=== PATIENT | female | born 1955 | race Caucasian/White ===

== ENCOUNTER 2025-01-26 20:25 | Emergency (ER) | payer MEDICARE, SELFPAY ==
--- NOTE | ~2025-01-26 | CT_ITS ---
CLINICAL HISTORY: visual changes R eye CT Head without contrast. CT angiography head and neck with contrast. MIP postprocessing. Comparison: None Findings: HEAD CT: No intra-axial mass, midline shift, hydrocephalus, or acute hemorrhage. No significant atrophy-like change or white matter disease. There is no sinus or mastoid fluid. The orbits are within normal limits. There is no acute fracture. HEAD AND NECK CTA: Aortic arch and cervical great vessels are patent. Intracranial arteries are patent. No aneurysm, dissection, or occlusion. No abnormal intracranial enhancement. The visualized thyroid gland is unremarkable. No cervical mass or fluid collection. Lung apices clear. No acute fracture. IMPRESSION: 1. Unremarkable head CT. 2. Patent head and neck CTA. This document has been electronically signed by: Anibal Peters MD on 01/27/2025 07:51:27
[2025-01-26 20:44] VITALS: BP 150/58; PULSE 71; RESP 18; TEMP 36.8; O2SAT 98; BMI 37.9
--- NOTE | 2025-01-26 20:44 | ED.GENADULT ---
HPI - General Adult General Chief complaint: Eye Problems Stated complaint: flashes of light and floaters in right eye DM Time Seen by Provider: 01/27/25 03:11 Source: patient Mode of arrival: ambulatory Limitations: no limitations History of Present Illness ED Provider: Dr. Susan Barnett HPI narrative: Patient comes to the emergency room complaining of right eye floaters and flashes. According to the patient, 3 years ago she started having floaters on the left eye. Patient states that she was evaluated and told that this were normal aging changes. Patient states that 2 days ago she started having sudden onset of black floaters, patient states they are thousands of floaters in her right visual field. Patient states that when she moves her right eye towards the lateral aspect of the eye and looks upwards, she can see flashes of light. Patient denies any pain. Patient states that her visual acuity seems to be at baseline. The patient's knowledge, she has never had any issues with glaucoma, retinal detachments TIAs/CVAs Related Data Allergies Allergy/AdvReac Type Severity Reaction Status Date / Time codeine AdvReac Unknown Verified 01/26/25 20:45 Review of Systems Review of Systems: Constitutional : No Weight loss, No Fever, No Chills, No Night Sweats, No Fatigue, No Malaise ENT/Mouth : No Hearing loss, No Ear Pain, No Nasal Congestion, No Sinus Pain, No Hoarseness, No sore throat, No Rhinorrhea, No Swallowing Difficulty Eyes: No Eye Pain, No Swelling, No Redness, No Foreign Body, No Discharge, complaining of seeing floaters and flashing lights out of the right eye Cardiovascular : No Chest Pain, No SOB, No Dyspnea on Exertion, No Orthopnea, No Edema, No Palpitations Respiratory : No Cough, No Sputum, No Wheezing, No Smoke Exposure, No Dyspnea Gastrointestinal : No Nausea, No Vomiting, No Diarrhea, No Constipation, No abdominal Pain, No Hematochezia, No Melena Genitourinary : no irregular bleeding, No Dysuria, No Urinary Frequency, No Hematuria, No Urinary Incontinence, No Urgency, No Flank Pain, No Urinary Flow Changes, No Hesitancy Musculoskeletal : No joint pain, No Myalgias, No Joint Swelling Skin : No Skin Lesions, No rash Neuro : No Weakness, No Numbness, No Paresthesias, No Loss of Consciousness, No Dizziness, No Headache Psych : No Anxiety/Panic, No Depression, No SI/HI/AH/VH, No Social Issues, Heme/Lymph: No Bruising, No Bleeding,No Lymphadenopathy Endocrine : No Polyuria, No Polydipsia, No Temperature Intolerance [facility] Past Medical History Medical History (Updated 01/27/25 @ 07:55 by Susan Barnett MD) Hypertension Type 2 diabetes mellitus Social History Social History Alcohol intake: current Alcohol intake frequency: 3 or more drinks per day Alcohol type: beer, wine and hard liquor Smoked in Last 30 Days: No Use of substances other than those prescribed or required for medical reasons: Yes Substance Use Type: Marijuana Substance Use Frequency: Daily Last Used Substance: Hours (ago) Advance Directives: No Advance Directives Information Provided: Yes Physical Exam ED Vital Signs: Vital Signs - 24 hr 01/26/25 20:44 01/27/25 02:20 01/27/25 03:55 Temperature 98.2 F 98.2 F Pulse Rate 71 72 58 Respiratory Rate 18 20 18 Blood Pressure 150/58 H 186/58 H 185/68 H Pulse Oximetry 98 97 97 Oxygen Delivery Method Room Air Room Air Room Air 01/27/25 05:47 Temperature 97.1 F Pulse Rate 61 Respiratory Rate 16 Blood Pressure 182/57 H Pulse Oximetry 98 Oxygen Delivery Method Room Air BMI result Body Mass Index 37.9 Const Other: Appearance: Alert. Oriented X3. No acute distress. Eyes: Pupils equal, round and reactive to light. - right eye: pressure 17.2 mmHg, 20/50, visual hanley intact - left eye: pressure is 17.5 mmHg, 20/50, visual hanley intact - on bedside ultrasound, bilaterally I did not see any obvious retinal detachment or vitreous hemorrhages ENT: Pharynx normal. Neck: Normal inspection. Neck supple. No lymph nodes noted. No crepitus CVS: Normal heart rate and rhythm. Pulses normal. Normal S1 and S2 Respiratory: No respiratory distress. Breath sounds normal. No Wheezing. No rales Abdomen: Soft and nontender. No rigidity. No distention. Skin: Skin warm and dry. Normal skin color. Normal skin turgor. Extremities: No lower extremity edema. No Lacerations. No Rash Neuro: Oriented X 3. No motor deficit. No sensory deficit. Moving all extremities. No slurred speech. CN 2 through 12 grossly intact Psych: calm, cooperative, normal affect Course Course Course Narrative: This is an RME: Additional HPI, ROS, PE not included below will be deferred to primary provider. RME assessment and note performed by: Fabby Milian PA-C This is a [id number]-female, with a hx diabetes type 2 on insulin, HLD, HTN, depression, who presents to the ER with complaints of right eye vision changes. Pt reports that two days ago she has had right eye vision changes > reporting that when she looked to the right she would get white streaks in her field of vision and had floaters in her right eye. Continued to have floaters in right eye, but white streaks resolved. Reports 1 hour [employer] she developed white streaks in her right eye again. She states that she chronically gets floaters in her left eye. Recently started on HCTZ 1 week ago. Mild headache. Medications Administered Discontinued Medications Generic Name Dose Route Start Last Admin Trade Name Freq PRN Reason Stop Dose Admin Iohexol 70 ml 01/27/25 05:01 01/27/25 05:02 Iohexol 350 Mg/Ml 100 Ml Infus..Btl IV 01/27/25 05:02 70 ml ONCE ONE Administration Medical Decision Making Medical Decision Making [facility] Narrative: ultrasound of the eyes do not show any acute abnormality. We will proceed with a CT scan. Also lab work. CT scan does not show any acute abnormality. I discussed the patient with Dr. Santiago from Ophthalmology. Patient may go to his office for an appointment on 01/30/2025. however, if patient has any visual changes, patient needs to go immediately to [facility] or [facility] I discussed the above-mentioned with the patient, patient agrees with plan Differential Diagnosis Differential Diagnoses: The differential diagnosis associated with the presentation includes ( retinal detachment, vitreous hemorrhage, retinoschisis) Admission/Observation Consideration of admission/observation: Escalation of care including admission/observation considered ( given patient's complaints, transfer was considered) Lab Data [facility] Lab Attestation statement: I reviewed the patient's lab results. 01/27/25 04:02 01/27/25 04:02 Labs: Lab Results 01/27/25 Range/Units 04:02 WBC 5.8 (4.8-10.8) X10*3/uL RBC 4.06 L (4.20-5.50) X10*6/uL Hgb 12.4 (12.0-16.0) g/dl Hct 36.2 L (37.0-47.0) % MCV 89.2 (80.0-98.0) fL MCH 30.5 (27.0-33.0) pg MCHC 34.3 (31.0-35.0) g/dl RDW 12.9 (11.0-16.0) % Plt Count 145 L (160-400) X10*3/uL MPV 9.8 (9.4-12.3) fL Immature Gran % (Auto) 0.2 (0.0-0.4) % Neut % (Auto) 60.5 (45-73) % Lymph % (Auto) 26.8 (20-40) % Glynn % (Auto) 7.6 (2-11) % Eos % (Auto) 4.0 (0-4) % Baso % (Auto) 0.9 (0-2) % Lymph # (Auto) 1.6 (1.2-4.9) X10*3/uL Glynn # (Auto) 0.4 (0.1-1.2) X10*3/uL Eos # (Auto) 0.2 (0.0-0.4) X10*3/uL Baso # (Auto) 0.1 (0.0-0.2) X10*3/uL Abs Immat Gran (auto) 0.01 (0.00-0.03) X10*3/uL Absolute Neuts (auto) 3.5 (2.0-8.3) x10*3/uL Absolute Nucleated RBC 0.000 (0.0-0.012) X10*3/uL Nucleated RBC % (auto) 0.0 (0.0-0.2) /100WBC Sodium 141 (135-145) mmol/L Potassium 3.9 (3.3-5.1) mmol/L Chloride 108 (96-108) mmol/L Carbon Dioxide 25 (22-29) mmol/L Anion Gap 12 (12-20) BUN 38 H (9-16) mg/dL Creatinine 1.44 H (0.5-1.4) mg/dL Estim Creat Clear Calc 45.5 Estimated GFR 36 Random Glucose 112 (60-115) mg/dL Calcium 9.5 (8.4-10.2) mg/dL Total Bilirubin 0.9 (0.0-1.0) mg/dL Direct Bilirubin 0.3 (0.0-0.5) mg/dL AST 30 (5-31) U/L ALT 22 (0-31) U/L Alkaline Phosphatase 83 (39-117) U/L Total Protein 7.1 (6.5-8.0) g/dL Albumin 4.6 (3.5-5.0) g/dL Independent Interpretation I performed an independent interpretation of an: CT Scan Radiology Impression Discussion of test interpretation with radiology: I have reviewed the radiologist's reading. Radiologist Impression: HEAD CT: No intra-axial mass, midline shift, hydrocephalus, or acute hemorrhage. No significant atrophy-like change or white matter disease. There is no sinus or mastoid fluid. The orbits are within normal limits. There is no acute fracture. HEAD AND NECK CTA: Aortic arch and cervical great vessels are patent. Intracranial arteries are patent. No aneurysm, dissection, or occlusion. No abnormal intracranial enhancement. The visualized thyroid gland is unremarkable. No cervical mass or fluid collection. Lung apices clear. No acute fracture. Critical Care Time Critical Care Time Critical Care Time: Yes Total Critical Care Time: 75 Attestation: I have personally provided critical care time. Time includes review of lab data, radiology results, discussion with consultants, and monitoring for potential decompensation. Intervention performed as documented. Discharge Plan Discharge Clinical Impression: Floaters in visual field Patient Disposition: Home, Self-Care Instructions: Eye (Visual) Floaters (ED) Additional Instructions: please go to Ophthalmology, Dr. Santiago's office on WednesdayJanuary 30. if you have any visual changes, please go immediately to [facility] or [facility] which is in [place]. Please follow-up with your primary care physician tomorrow. If you have any worsening or new symptoms, please return to the emergency room or call 911 Referrals: Isac Santiago [Physician] - 01/30/25 Print Language: Paraguayan
--- NOTE | 2025-01-27 01:33 | PC.NURSE ---
Pt to charge stating to inquire as to what she was waiting on as it has been an hour that she has been in the room without a provider coming in to assess her. This RN apologized for the inconvenience and provided her with the plan per PIT provider's earlier encounter and communications with this RN. Pt seemed content with this information and thanked this RN for the info/update.
--- OUTSIDE RECORDS SUMMARY | 2025-01-27 02:01 | XMS_ITS | Clinical Summary ---
Author Organization [facility] Address [address] [place] [address] Phone Care Team Providers Care [employer] D[employer] Name Role Phone Roselia Cano MD Primary Care Provider [phone] Allergies Active Allergy Reactions Criticality Noted Date Comments Codeine Nausea And Vomiting 11/30/2024 Medications polyethylene glycol (Golytely) 236-22.74-6.74 -5.86 gram solution Take 4L by mouth once for one dose. May substitue any PEG. Starting at 6PM the night before your procedure drink 1 8oz glasses at your own pace until you complete half of the gallon. Finish 2nd half of the gallon 5 hours before your procedure. 4000 mL 5 Active bisacodyL (DULCOLAX) 5 mg EC tablet Take 2 tablets by mouth right before beginning bowel prep. See instructions provided by the office 2 tablet 5 Active aspirin 81 mg capsule Take 81 mg by mouth. 5 Active vitamin B complex (B Complex 100) 307-4-738-2-2 mg/mL injection Take 1 tablet by mouth. 5 Active cholecalciferol (VITAMIN D-3) 125 mcg (5,000 unit) capsule Take by mouth. A ctive Jardiance 10 mg tablet Take 1 tablet (10 mg total) by mouth 1 (one) time each day in the morning. Active insulin glargine,hum.re c.anlog (Basaglar KwikPen U-100 Insulin) 100 unit/mL (3 mL) injection pen INJECT 58 UNITS UNDER THE SKIN DAILY 5 Active lisinopriL (PRINIVIL,ZESTR IL) 20 mg tablet Take 1 tablet (20 mg total) by mouth 1 (one) time each day. Active sertraline (ZOLOFT) 100 mg tablet Take 1 tablet (100 mg total) by mouth 1 (one) time each day. 1 Active simvastatin (ZOCOR) 40 mg tablet See Instructions, TAKE ONE TABLET BY MOUTH EVERY DAY, # 30 tablet, Refills 5, Instructions Replace Required Details, Route to Pharmacy Electronically, [facility], 167.64, cm, 04/08/21 14:21:00 EDT, Height 1 Active Mounjaro 2.5 mg/0.5 mL injection INJECT 2.5MG UNDER THE SKIN EVERY WEEK. ROTATE INJECTION SITES Active omeprazole (PriLOSEC) [address] capsule Take 1 capsule (40 mg total) by mouth 1 (one) time each day. Do not crush or chew. 90 each 5 04/07/20 25 Active Encounters Date Type Department Care Team Description 01/04/2025 Telephone Gastroenterology - [place] [facility] [address] [facility] [address] [place] [address] Simi Jean NP Results (Endoscopy 11/30/2024) 11/30/2024 8:08 AM EDT Anesthesia Event [facility] Endoscopy [address] [place] [phone] Arden Saucedo MD 11/30/2024 7:01 AM EDT - 11/30/2024 11:59 PM EDT Hospital Encounter [facility] Endoscopy [address] [place] [address] Nicholas Salazar MD Swanson, Mona, CRNA Spencer, Mark A, MD Dysphagia; Family hx colonic polyps Discharge Disposition: Home or Self Care from Last 3 Months Surgical History Surgery Date Site/Laterality Comments TONSILLECTOMY CHOLECYSTECTOMY BREAST LUMPECTOMY Right VENTRAL HERNIA REPAIR Medical History Medical History Date Comments Diabetes mellitus (CMS/HCC V24, CMS/HCC V28) Hypertension Hyperlipidemia Anxiety Depression CKD (chronic kidney disease), stage III ([facility] V24, [facility] V28) Sleep apnea Obesity Social History Tobacco Use Types Packs/Day Years Used Date Smoking Tobacco: Never Smokeless Tobacco: Never Tobacco Cessation:Counseling Given: Not Answered Alcohol Use Standard Drinks/Week Comments Yes 0 (1 standard drink = 0.6 oz pur e alcohol) Interpersonal Safety Answer Date Record ed Physical Abuse 11/30/2024 Verbal Abuse 11/30/2024 Comments No Sex and Gender Information Value Date Recorded Sex Assigned at Not on file Legal Sex Female 4:11 AM EST Gender Identity Not on file Sexual Orientation Not on file Obstetrics History Last Filed Vital Signs Vital Sign Reading Time Taken Comments Blood Pressure 122/51 11/30/2024 8:54 AM EDT Pulse 53 11/30/2024 8:54 AM EDT Temperature 36.4 ??C (97.6 ??F) 11/30/2024 8:34 AM ED T Respiratory Rate 12 11/30/2024 8:54 AM EDT Oxygen Saturation 97% 11/30/2024 8:54 AM EDT Inhaled Oxygen Concentration - - Weight 107 kg (235 lb) 11/30/2024 7:57 AM EDT Height 167.6 cm (5' 6 ) 11/30/2024 7:57 AM EDT Body Mass Index 37.93 11/30/2024 7:57 AM EDT Plan of Treatment Upcoming Encounters Date Type Department Care Team (Late st Contact Info) Description 03/12/2025 8:40 AM EDT Office Visit Gastroenterology - [place] [facility] [address] [facility] [address] [place] [phone] Simi Jean NP 175 [facility] [address] [place] [address] Health Maintenance Due Date Last Done Comments Breast Cancer Screening 1955 Diabetes: Annual Foot Exam 1965 Diabetes: Annual Retina Eye Exam 1965 Zoster Vaccines (2 of 2) 08/05/2022 06/10/2022 Cholesterol Screening (Lipid Panel) 03/14/2024 Depression Screening 03/14/2024 Hepatitis C Screening 03/14/2024 Medicare Annual Wellness Visit 03/14/2024 Osteoporosis Screening (Bone Density Screening) 03/14/2024 Social Influencers of Health Screening 03/14/2024 COVID-19 Vaccine (6 - Mixed Product risk ) 11/21/2024 05/23/2024, 05/06/2023, 06/10/2022, Additional history exists Diabetes: Blood Sugar Control Test (HGBA1C) 01/07/2025 07/10/2024, 07/10/2024 Diabetes: Annual Urine Albumin-Creatinine Ratio (uACR) 07/10/2025 07/10/2024 Diabetes: Annual GFR (Glomerular Filtration Rate) 07/10/2025 07/10/2024 Hypertension/CHF/CAD Annual BMP Blood Test 07/10/2025 07/10/2024 Falls Risk Assessment 11/30/2025 11/30/2024 Colorectal Cancer Screening: Colonoscopy 11/30/2029 11/30/2024 DTaP,Tdap,and Td Vaccines (2 - Td or Tdap) 01/29/2032 01/28/2022 Influenza Vaccine Completed 05/23/2024, , 07/08/2021, Additional history exists RSV Immunization Adult Patients Completed 05/23/2024 Pneumococcal Vaccine: 50+ Years Completed 10/17/2024, 01/28/2022 HIB Vaccines Aged Out No longer eligi ble based on patient's age to complete this topic HPV Vaccines Aged Out No longer eligi ble based on patient's age to complete this topic Hepatitis A Vaccines Aged Out No long er eligible based on patient's age to complete this topic Hepatitis B Vaccines Aged Out No long er eligible based on patient's age to complete this topic IPV Vaccines Aged Out No longer eligi ble based on patient's age to complete this topic MMR Vaccines Aged Out No longer eligi ble based on patient's age to complete this topic Meningococcal ACWY Vaccine Aged Out N o longer eligible based on patient's age to complete this topic Meningococcal B Vaccine Aged Out No l onger eligible based on patient's age to complete this topic RSV Immunization Patients Under 20 months Aged Out No longer eligible based on patient's age to complete this topic Varicella Vaccines Aged Out No longer eligible based on patient's age to complete this topic Procedures Procedure Name Priority Date/Time Associated Diagnosis Comments COLONOSCOPY Routine 11/30/2024 8:33 AM EDT Dysphagia Family hx colonic polyps EGD Routine 11/30/2024 8:33 AM EDT Dysphagia Family hx colonic polyps TISSUE EXAM Routine 11/30/2024 8:16 AM EDT Dysphagia Family hx colonic polyps POCT GLUCOSE BLOOD Routine 11/30/2024 7: 47 AM EDT from Last 3 Months Results * COLONOSCOPY Anesthesia - MAC; [facility] ENDOSCOPY (11/30/2024 8:33 AM EDT) Anatomical Region Laterality Modality Other 11/30/2024 8:21 AM EDT Impressions 11/30/2024 8:35 AM EDT - Diverticulosis in the sigmoid colon. ? - Internal hemorrhoids. ? - No specimens collected. Recommendation: ?- Use fiber, for example Citrucel, Fibercon, Konsyl or ? Metamucil. ? - Repeat colonoscopy in 5 years for surveillance. Narrative 11/30/2024 8:[address] [facility] GI Patient Name: Claudia Anguiano Procedure Date: 11/30/2024 8:21 AM Date of : 1955 Age: 69 Gender: Female Note Status: Finalized Attending MD: Nicholas Salazar MD, Procedure Date No Time: 11/30/2024 Procedure: ? Colonoscopy Indications: ? High risk colon cancer surveillance: Personal history ? of colonic polyps Providers: ? Nicholas Salazar MD Referring MD: ?Nicholas Salazar MD Medicines: ? Propofol per Anesthesia Complications: ? No immediate complications. Estimated Blood Loss: ? Estimated blood loss: none. Procedure: ? Pre-Anesthesia Assessment: ? - ASA Grade Assessment: III - A patient with severe ? systemic disease. ? After I obtained informed consent, the scope was ? passed under direct vision. Throughout the procedure, ? the patient's blood pressure, pulse, and oxygen ? saturations were monitored continuously.The ? Colonoscope was introduced through the anus and ? advanced to the cecum, identified by appendiceal ? orifice and ileocecal valve. The colonoscopy was ? performed without difficulty. The patient tolerated ? the procedure well. The quality of the bowel ? preparation was adequate. Findings: ?The perianal and digital rectal examinations were ? normal. ? A few diverticula were found in the sigmoid colon. ? Internal hemorrhoids were found during endoscopy. The ? hemorrhoids were Grade II (internal hemorrhoids that ? prolapse but reduce spontaneously). Procedure Code(s): ? --- Professional --- ? G0105, Colorectal cancer screening; colonoscopy on ? individual at high risk Diagnosis Code(s): ? --- Professional --- ? Z86.010, Personal history of colonic polyps ? K64.1, Second degree hemorrhoids ? K57.30, Diverticulosis of large intestine without ? perforation or abscess without bleeding CPT copyright 2020 [employer]. All rights reserved. The codes documented in this report are preliminary and upon bevel polisher review may be revised to meet current compliance requirements. Nicholas Salazar MD 11/30/2024 8:35:09 AM This report has been signed electronically.Nicholas Salazar MD Number of Addenda: 0 Note Initiated On: 11/30/2024 8:21 AM Scope In: Scope Out: ? Endoscopy Department at [facility] - [address] [place] [address], ? [place] [address] Procedure Note Nicholas Salazar MD - 11/30/[address] [facility] GI Patient Name: Claudia Anguiano Procedure Date: 11/30/2024 8:21 AM Date of : 1955 Age: 69 Gender: Female Note Status: Finalized Attending MD: Nicholas Salazar MD, Procedure Date No Time: 11/30/2024 Procedure: Colonoscopy Indications: High risk colon cancer surveillance: Personalhistory of colonic polyps Providers: Nicholas Salazar MD Referring MD: Nicholas Salazar MD Medicines: Propofol per Anesthesia Complications: No immediate complications. Estimated Blood Loss: Estimated blood loss: none. Procedure: Pre-Anesthesia Assessment: - ASA Grade Assessment: III - A patient with severe systemic disease. After I obtained informed consent, the scope was passed under direct vision. Throughout theprocedure, the patient's blood pressure, pulse, and oxygen saturations were monitored continuously.The Colonoscope was introduced through the anus and advanced to the cecum, identified by appendiceal orifice and ileocecal valve. The colonoscopy was performed without difficulty. The patient tolerated the procedure well. The quality of the bowel preparation was adequate. Findings: The perianal and digital rectal examinations were normal. A few diverticula were found in the sigmoidcolon. Internal hemorrhoids were found during endoscopy.The hemorrhoids were Grade II (internal hemorrhoidsthat prolapse but reduce spontaneously). Procedure Code(s): --- Professional --- G0105, Colorectal cancer screening; colonoscopy on individual at high risk Diagnosis Code(s): --- Professional --- Z86.010, Personal history of colonic polyps K64.1, Second degree hemorrhoids K57.30, Diverticulosis of large intestine without perforation or abscess without bleeding CPT copyright 2020 [employer]. All rights reserved. The codes documented in this report are preliminary and upon bevel polisher reviewmay be revised to meet current compliance requirements. Nicholas Saalzar MD 11/30/2024 8:35:09 AM This report has been signed electronically.Nicholas Salazar MD Number of Addenda: 0 Note Initiated On: 11/30/2024 8:21 AM Scope In: Scope Out: Endoscopy Department at [facility] - [address] [place] [phone] IMPRESSION: - Diverticulosis in the sigmoid colon. - Internal hemorrhoids. - No specimens collected. Recommendation: - Use fiber, for example Citrucel, Fibercon, Konsylor Metamucil. - Repeat colonoscopy in 5 years for surveillance. us Nicholas Salazar MD GI~PROCEDURE ORDERABLES Final Re sult * EGD Anesthesia - [facility]; [facility] ENDOSCOPY (11/30/2024 8:33 AM EDT) Anatomical Region Laterality Modality Other 11/30/2024 7:51 AM EDT Impressions 11/30/2024 8:21 AM EDT - Biopsies were taken with a cold forceps for ? histology in the middle third of the esophagus and in ? the lower third of the esophagus. Recommendation: ?- Await pathology results. ? - Observe patient's clinical course. Narrative 11/30/2024 8:[address] [facility] GI Patient Name: Claudia Anguiano Procedure Date: 11/30/2024 7:51 AM Date of : 1955 Age: 69 Gender: Female Note Status: Finalized Attending MD: Nicholas Salazar MD, Procedure Date No Time: 11/30/2024 Procedure: ? Upper GI endoscopy Indications: ? Dysphagia Providers: ? Nicholas Salazar MD Referring MD: ?Nicholas Salazar MD Medicines: ? Propofol per Anesthesia Complications: ? No immediate complications. Estimated Blood Loss: ? Estimated blood loss was minimal. Procedure: ? Pre-Anesthesia Assessment: ? - ASA Grade Assessment: III - A patient with severe ? systemic disease. ? After obtaining informed consent, the endoscope was ? passed under direct vision. Throughout the procedure, ? the patient's blood pressure, pulse, and oxygen ? saturations were monitored continuously.The Olympus ? Gastroscope was introduced through the mouth, and ? advanced to the second part of duodenum. The upper GI ? endoscopy was accomplished without difficulty. The ? patient tolerated the procedure well. Findings: ?Biopsies were taken with a cold forceps in the middle ? third of the esophagus and in the lower third of the ? esophagus for histology. Estimated blood loss was ? minimal. Procedure Code(s): ? --- Professional --- ? 75078, Esophagogastroduodenoscopy, flexible, ? transoral; with biopsy, single or multiple Diagnosis Code(s): ? --- Professional --- ? R13.10, Dysphagia, unspecified CPT copyright 2020 [employer]. All rights reserved. The codes documented in this report are preliminary and upon bevel polisher review may be revised to meet current compliance requirements. Nicholas Salazar MD 11/30/2024 8:21:18 AM This report has been signed electronically.Nicholas Salazar MD Number of Addenda: 0 Note Initiated On: 11/30/2024 7:51 AM Scope In: Scope Out: ? Endoscopy Department at [facility] - [address] [place] [address], ? [place] [address] Procedure Note Nicholas Salazar MD - 11/30/[address] [facility] GI Patient Name: Claudia Anguiano Procedure Date: 11/30/2024 7:51 AM Date of : 1955 Age: 69 Gender: Female Note Status: Finalized Attending MD: Nicholas Salazar MD, Procedure Date No Time: 11/30/2024 Procedure: Upper GI endoscopy Indications: Dysphagia Providers: Nicholas Salazar MD Referring MD: Nicholas Salazar MD Medicines: Propofol per Anesthesia Complications: No immediate complications. Estimated Blood Loss: Estimated blood loss was minimal. Procedure: Pre-Anesthesia Assessment: - ASA Grade Assessment: III - A patient with severe systemic disease. After obtaining informed consent, the endoscope was passed under direct vision. Throughout theprocedure, the patient's blood pressure, pulse, and oxygen saturations were monitored continuously.The Olympus Gastroscope was introduced through the mouth, and advanced to the second part of duodenum. The upperGI endoscopy was accomplished without difficulty. The patient tolerated the procedure well. Findings: Biopsies were taken with a cold forceps in themiddle third of the esophagus and in the lower third ofthe esophagus for histology. Estimated blood loss was minimal. Procedure Code(s): --- Professional --- 73247, Esophagogastroduodenoscopy, flexible, transoral; with biopsy, single or multiple Diagnosis Code(s): --- Professional --- R13.10, Dysphagia, unspecified CPT copyright 2020 [employer]. All rights reserved. The codes documented in this report are preliminary and upon bevel polisher reviewmay be revised to meet current compliance requirements. Nicholas Salazar MD 11/30/2024 8:21:18 AM This report has been signed electronically.Nicholas Salazar MD Number of Addenda: 0 Note Initiated On: 11/30/2024 7:51 AM Scope In: Scope Out: Endoscopy Department at [facility] - [address] [place] [phone] IMPRESSION: - Biopsies were taken with a cold forceps for histology in the middle third of the esophagus andin the lower third of the esophagus. Recommendation: - Await pathology results. - Observe patient's clinical course. us Nicholas Salazar MD GI~PROCEDURE ORDERABLES Final Re sult * Tissue exam (11/30/2024 8:16 AM EDT) Final Diagnosis A. Esophagus, distal, biopsies: Chronic esophagitis with increased intraepithelial eosinophils (up to 6/hpf) and reactive changes. B. Esophagus, mid, biopsies: Chronic esophagitis with increased intraepithelial eosinophils (up to 15/HPF) and reactive changes. 12/01/2024 11:00 AM EDT [facility] Comment These findings support the diagnosis of eosinophilic esophagitis in the correct clinical and endoscopic setting; the differential diagnosis includes GERD. 12/01/2024 11:00 AM EDT [facility] Gross Description A. Esophagus, distal biopsies: Labeled distal esophagus . Received in formalin, are three irregular soft to friable, white-pink to red tissue fragments, approximately ranging from 0.3 cm to 0.6 cm in greatest diameters, which are wrapped in paper and submitted in toto in one cassette, three pieces, multiple levels. B. Esophagus, mid biopsies: Labeled mid esophagus . Received in formalin, are three irregular soft to friable, white-pink tissue fragments, approximately ranging from 0.2 cm to 0.7 cm in greatest diameters, which are wrapped in paper and submitted in toto in one cassette, three pieces, multiple levels. dvb/DG 12/01/2024 11:00 AM EDT [facility] Disclaimer Unless otherwise specified, all tissue is 10% NB formalin fixed and paraffin embedded. 12/01/2024 11:00 AM EDT [facility] Tissue Esophageal structure / Unknown 11/30/2024 8:16 AM EDT 11/30/2024 10:16 AM EDT Tissue specimen (specimen) Esophageal structure / Unknown 11/30/2024 8:17 AM EDT 11/30/2024 10:16 AM EDT Nicholas Salazar MD LAB PATHOLOGY ORDERABLES Final R esult [facility] [address] [place] [address], [place] [phone] * (ABNORMAL) POCT Glucose, blood (11/30/2024 7:47 AM EDT) Glucose POCT 123(H) 70 - 100 mg/dL 11/30/2024 7:48 AM EDT [facility] Blood Capillary blood specimen / Unknown 11/30/2024 7:47 AM EDT 11/30/2024 7:49 AM EDT Sue Ndiaye CRNA LAB POINT OF CARE TE ST DOCKED DEVICE UNSOLICITED RESULTS Final Result [facility] [address] [place] [address], [place] [phone] from Last 3 Months Insurance [employer]UE [employer] - [place] MEDICARE ADVANTAGE Care Teams [employer] Relationship Specialty Start Date End Date Roselia Cano MD [address] [place] [address] PCP - General Internal Medicine 08/04/24
[2025-01-27 02:20] VITALS: BP 186/58; PULSE 72; RESP 20; TEMP 36.8; O2SAT 97
[2025-01-27 03:55] VITALS: BP 185/68; PULSE 58; RESP 18; O2SAT 97
[2025-01-27 04:07] LABS: MANUAL DIFF FLAG NO
[2025-01-27 04:08] LABS: Basophils Absolute Auto 0.1 X10*3/uL (0.0-0.2); Basophils Percent Auto 0.9 % (0-2); Eosinophils Absolute Auto 0.2 X10*3/uL (0.0-0.4); Hematocrit 36.2 % (37.0-47.0); Hemoglobin 12.4 g/dl (12.0-16.0); Imm Gran Abs Auto 0.01 X10*3/uL (0.00-0.03); Imm Gran Pct Auto 0.2 % (0.0-0.4); Lymphocytes Absolute Auto 1.6 X10*3/uL (1.2-4.9); Lymphocytes Percent Auto 26.8 % (20-40); Mean Corpuscular HGB Conc 34.3 g/dl (31.0-35.0); Mean Corpuscular Hemoglobin 30.5 pg (27.0-33.0); Mean Corpuscular Volume 89.2 fL (80.0-98.0); Mean Platelet Volume 9.8 fL (9.4-12.3); Monocytes Absolute Auto 0.4 X10*3/uL (0.1-1.2); Monocytes Percent Auto 7.6 % (2-11); Neutrophils Absolute Auto 3.5 x10*3/uL (2.0-8.3); Neutrophils Percent Auto 60.5 % (45-73); Platelet Count 145 X10*3/uL (160-400); Red Blood Count 4.06 X10*6/uL (4.20-5.50); Red Cell Distribution Width 12.9 % (11.0-16.0); White Blood Count 5.8 X10*3/uL (4.8-10.8)
[2025-01-27 04:29] LABS: Alanine Aminotransferase 22 U/L (0-31); Albumin Level 4.6 g/dL (3.5-5.0); Alkaline Phosphatase 83 U/L (39-117); Anion Gap 12 (12-20); Aspartate Amino Transferase 30 U/L (5-31); Bilirubin Direct 0.3 mg/dL (0.0-0.5); Bilirubin Total 0.9 mg/dL (0.0-1.0); Blood Urea Nitrogen 38 mg/dL (9-16); Calcium 9.5 mg/dL (8.4-10.2); Carbon Dioxide 25 mmol/L (22-29); Chloride 108 mmol/L (96-108); Creatinine Clr Calc Pharmacy 45.5; Estimated Glomerular Filt Rate 36; Glucose Random 112 mg/dL (60-115); Potassium 3.9 mmol/L (3.3-5.1); Sodium 141 mmol/L (135-145); Total Protein 7.1 g/dL (6.5-8.0)
[2025-01-27] MEDS: iohexoL 350 MG/ML 100 ML INFUS..BTL 70 ML IV (05:02)
[2025-01-27 05:47] VITALS: BP 182/57; PULSE 61; RESP 16; TEMP 36.2; O2SAT 98
[2025-01-27 08:13] VITALS: BP 144/50; PULSE 54; RESP 16; TEMP 36.5; O2SAT 96
[2025-01-27 08:20] VITALS: BP 144/50; PULSE 54; RESP 16; TEMP 36.5; O2SAT 96
== END 2025-01-27 08:25 | disposition home or self-care (01) ==
PROVIDERS: Emergency Provider Emergency Medicine; PCP Nurse Practitioner Gerontology
DX: H43.391 Other vitreous opacities, right eye (principal); E11.9 Type 2 diabetes mellitus without complications; I10 Essential (primary) hypertension; E78.5 Hyperlipidemia, unspecified; Z79.4 Long term (current) use of insulin
CPT/HCPCS: 36415; 70496; 70498; 80048; 80076; 85025; 99284; Q9967

== ENCOUNTER → 2025-01-27 03:41 | Outpatient (BNV) | payer MEDICARE, SELFPAY | PROVIDERS: Emergency Provider Emergency Medicine; PCP Nurse Practitioner Gerontology; Visit Provider Radiology Diagnostic Radiology | DX: H53.9 Unspecified visual disturbance (principal) | CPT/HCPCS: 70496; 70498 ==